=== PATIENT | male | born 1995 | race Caucasian/White ===

== ENCOUNTER 2017-09-27 07:33 | Emergency (ER) | payer SELFPAY ==
[~2017-09-27] VITALS: Ht 175.3 cm; Wt 108.0 kg
[~2017-09-27 07:33] MED LIST: CIPR500T4 PO
[2017-09-27 07:37] VITALS: BP 136/89; PULSE 82; RESP 16; TEMP 98.2; O2SAT 97
[2017-09-27] MEDS ORDERED: DOXY100C PO (08:37)
--- NOTE | 2017-09-27 08:37 | PD ---
HPI Chief Complaint: Complaint Time Seen by Provider: 08:24 Travel History International Travel<30 days: No Contact w/Intl Traveler<30days: No Traveled to known affect area: No History of Present Illness HPI This 22-year-old male is complaining of urethral discharge. He noted clear urethral discharge the last day or so. He is not having pain. He has not noted any sores. He has not had fever or chills. He is sexually active. He is not having pain PFSH Past Medical History Diminished Hearing: No Immunizations Current: Yes Tetanus Vaccination: < 5 Years Influenza Vaccination: No Social History Alcohol Use: No Tobacco Use: Yes (PK PER DAY) Substance Use: No Allergies-Medications (Allergen,Severity, Reaction): Coded Allergies: No Known Allergies (Unverified Adverse Reaction, Unknown, 09/27/17) Reported Meds & Prescriptions Reported Meds & Active Scripts Active No Active Prescriptions or Reported Medications Review of Systems Except as stated in HPI: all other systems reviewed are Neg General / Constitutional: No: Fever, Chills Eyes: No: Diploplia HENT: No: Headaches Cardiovascular: No: Chest Pain or Discomfort Genitourinary: No: Hematuria, Incontinence, Pelvic Pain Physical Exam Narrative GENERAL: Well-developed male SKIN: Focused skin assessment warm/dry. HEAD: Atraumatic. Normocephalic. EYES: Pupils equal and round. No scleral icterus. No injection or drainage. ENT: No nasal bleeding or discharge. Mucous membranes pink and moist. NECK: Trachea midline. No JVD. GASTROINTESTINAL: Abdomen soft, non-tender, nondistended. Hepatic and splenic margins not palpable. There are no lesions of the penis or scrotum. I do not notice a discharge at this time MUSCULOSKELETAL: No obvious deformities. No clubbing. No cyanosis. No edema. NEUROLOGICAL: Awake and alert. No obvious cranial nerve deficits. Motor grossly within normal limits. Normal speech. PSYCHIATRIC: Appropriate mood and affect; insight and judgment normal. Data Data Last Documented VS Vital Signs Date Time Temp Pulse Resp B/P (MAP) Pulse Ox O2 Delivery O2 Flow Rate FiO2 09/27/17 07:37 98.2 82 16 136/89 (105) 97 Orders Orders Gc And Chlamydia Pcr (09/27/17 08:33) Sodium Chloride 0.9% Flush (Ns Flush) (09/27/17 08:45) Ceftriaxone Inj (Rocephin Inj) (09/27/17 08:45) Lidocaine 1% Inj (50 Ml) (Xylocaine 1% I (09/27/17 08:45) MDM Medical Decision Making Medical Screen Exam Complete: Yes Emergency Medical Condition: Yes Medical Record Reviewed: Yes Differential Diagnosis Differential includes urethritis, chlamydia, GC Narrative Course On the basis of his symptoms patient will be treated for urethritis. Diagnosis Primary Impression: Urethritis Scripts Doxycycline Hyclate (Doxycycline Hyclate) 100 Mg Cap 100 MG PO BID for Infection for 7 Days, #14 CAP 0 Refills Prov: Efrain Rivera MD 09/27/17 Disposition: 01 DISCHARGE HOME Condition: Stable Efrain Rivera MD Sep 27, 2017 08:37
[2017-09-27] MEDS ORDERED: LIDOCAINE HCL 1% 50 ML VIAL XX ONE (08:45)
[2017-09-27] MEDS ORDERED: cefTRIAXone 250 MG VIAL IM ONE (08:45)
[2017-09-27] MEDS ORDERED: SODIUM CHLORIDE 0.9% FLUSH 10 ML FLUSH IVF PRN (08:45)
== END 2017-09-27 09:02 | disposition home or self-care (01) ==
LOC: PHED 07:33
DX: N34.2 Other urethritis (principal); F17.200 Nicotine dependence, unspecified, uncomplicated
CPT/HCPCS: 87491; 87591; 96372; 99283; J0696